=== PATIENT | female | born 2000 | race Caucasian/White ===

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

== ENCOUNTER 2018-08-13 16:34 | Inpatient (IN) | payer BC ==
--- NOTE | 2018-08-13 17:21 | ED ---
Psychiatric Complaint - HPI Summary HPI Summary: This patient is a 18 year old F [facility] [place] [facility] [place] by Vinicius, her RA steel division supervisor, with a chief complaint for increased anxiety and emotional stress. Patient states that she took her own 0.5mg Klonopin x 4 yesterday morning and then 4 more yesterday afternoon. This episode was not brought to medical attention. She is not on 9.41 status. She states that she was not trying to hurt herself but felt the medication was not working effectively so decided to try more. Her friends were concerned about her and brought her to the ED. She typically takes this medication as needed. States she has not used it in months prior to yesterday. The Klonopin is prescribed by an [employer]ISTR[employer] in [place]. Pt also takes Buspirone. Patient has no previous mental health hospitalizations or suicide attempts, but pt did come to the [facility] [place] and had a mental health evaluation and was released. Reports history of cutting , last episode months ago. Denies ETOH or drug use. Pt brought her pill bottles. They are not empty. Dr. Maki Dang (psychologist) [phone] is pt's psychologist in [place] called prior to patient's arrival. Dr. Dang only heard what happened to the pt, did not see her personally today. Dr. Dang favors admission for Phoebe, and agrees to provide collateral. Reports patient is going through emotional collapse and has last seen Dr. Arredondo, psychiatrist at on 08/05/17. Pt also has family issues. She and her mother have emotional issues together, per her psychologist. And also there is stress in the family due to an autistic brother. Pt states her parents are enroute from 4 hrs away. - History Of Current Complaint Chief Complaint: EDPsychosocial Hx Obtained From: Patient, Medical Records, Other: - Dr. Maki Dang Hx Last Menstrual Period: 07/22/18 ?: No Onset/Duration: Gradual Onset, Lasting Days Timing: Constant Severity Initially: Severe Severity Currently: Mild Character: Depressed, Anxious Aggravating Factor(s): Recent Stress, Medication Non-compliance Alleviating Factor(s): Nothing Associated Signs And Symptoms: Positive: Sleep Disturbance Related History: Positive For: Prior Psychiatric Issues Negative For: Drug Abuse Counseling, Admissions Related To Substance Abuse Has Suicidal: Denies: Thoughts, With A Plan Ingestion History: Type/Name Of Drug - Klonopin, Amount Ingested - 0.5 x 4, later 0.5 x 4 on 08/11/18 - Allergies/Home Medications Allergies/Adverse Reactions: Allergies Allergy/AdvReac Type Severity Reaction Status Date / Time No Known Allergies Allergy Verified 08/13/18 17:08 PMH/Surg Hx/FS Hx/Imm Hx Previously Healthy: Yes Endocrine/Hematology History: Denies: Hx Anticoagulant Therapy Cardiovascular History: Denies: Hx Hypertension Psychiatric History: Reports: Hx Anxiety, Hx Depression, Other Psychiatric Issues/Disorders - hx cutting behavior Denies: Hx Eating Disorder, Hx of Violent Episodes Against Others - Surgical History Surgery Procedure, Year, and Place: none Infectious Disease History: No Infectious Disease History: Denies: Traveled Outside the [place] in Last 30 Days - Family History Known Family History: Positive: Other - autism in brother; "my whole family has depression"; denies suicide hx - Social History Occupation: Student Lives: 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 [employer] Alcohol Use: Rare Substance Use Type: Reports: None Smoking Status (MU): Never Smoked Tobacco Review of Systems Constitutional: Negative Negative: Fever Cardiovascular: Negative Respiratory: Negative Gastrointestinal: Negative Positive: no symptoms reported Skin: Negative Neurological: Negative Positive: Anxious, Depressed All Other Systems Reviewed And Are Negative: Yes Physical Exam - Summary Physical Exam Summary: Appearance: well-appearing, no pain distress, well-nourished Skin: Warm, color reflects adequate perfusion, dry Head: Normal Head/Face inspection, atraumatic Eyes: Conjunctiva clear ENT: Normal inspection Neck: Supple, no nodes, no JVD Respiratory: Lungs clear, normal breath sounds, no respiratory distress Cardio: RRR, No murmur, pulses normal, brisk capillary refill Abdomen: Soft, nontender Bowel sounds: Present Musculoskeletal: Strength Intact/ROM intact, no calf tenderness, no edema. Psychological: calm, cooperative, coherent Neuro: Alert, muscle tone normal, no focal deficit Triage Information Reviewed: Yes Vital Signs On Initial Exam: Initial Vitals Temp Pulse Resp BP Pulse Ox 98.1 F 83 16 124/92 100 08/13/18 16:56 08/13/18 16:56 08/13/18 16:56 08/13/18 16:56 08/13/18 16:56 Vital Signs Reviewed: Yes Diagnostics - Vital Signs Vital Signs Temp Pulse Resp BP Pulse Ox 08/13/18 16:56 98.1 F 83 16 124/92 100 - Laboratory Result Diagrams: 08/13/18 18:05 08/13/18 18:05 Lab Statement: Any lab studies that have been ordered have been reviewed, and results considered in the medical decision making process. Course/Dx - Course Course Of Treatment: 18 year old F presenting by private car to [facility] accompanied by Vinicius, her RA steel division supervisor, with a chief complaint increased anxiety and emotional stress. Patient states that she took 0.5mg Klonopin x 4 yesterday morning and then 4 more yesterday afternoon. She states that she was not trying to hurt herself but felt the medication was not working effectively so she tried more. Pt came voluntarily by car. Pt did not seek medical attention for this episode until now. Patient is calm and cooperative with mental health procedures. Pt was placed on q 15 minute checks and observed. Bloodwork and toxicology reports are negative. Pt is clear for mental health evaluation at 1800. Pt remains calm and cooperative. Friends are with her. Patient is moved to [facility]. Patient is signed out to Dr. Rushing awaiting mental health evaluation. Pt's psychologist, Dr. Maki Dang called ahead of pt's arrival and definitely favors admission for patient. - Differential Dx/Clinical Impression Differential Diagnosis/HQI/PQRI: Positive: Anxiety, Depression, Drug Overdose/ Intentional, Drug Overdose/Unintentional, Suicide Attempt, Suicidal Ideation, Suicidal Gesture Provider Diagnosis: Overdose of medication, Anxiety disorder - Physician Notifications Patient Is Medically Stable For: Psych Evaluation - 1800. Discharge - Sign-Out/Discharge Documenting (check all that apply): Sign-Out Patient Signing out patient TO: Payam Rushing - [facility], 08/13/18 1900 Patient Received Moderate/Deep Sedation with Procedure: No - Discharge Plan Referrals: [facility] @ [Outside] - Attestation Statements Document Initiated by Scribe: Yes Documenting Scribe: Kristy Clement Provider For Whom Scribe is Documenting (Include Credential): Xochitl Rojo MD Scribe Attestation: Kristy Trevino, scribed for Xochitl Rojo MD on 08/13/18 at 2210. Scribe Documentation Reviewed: Yes Provider Attestation: The documentation as recorded by the josetteibKristy hunt accurately reflects the service I personally performed and the decisions made by me, Xochitl Rojo MD Status of Anderson Document: Viewed
[2018-08-13 18:00] LABS: Urine Appearance Clear; Urine Bilirubin Negative (Negative); Urine Blood Negative (Negative); Urine Color Yellow; Urine Glucose Negative (Negative); Urine Ketones Negative (Negative); Urine Nitrite Negative (Negative); Urine Protein Negative (Negative); Urine Urobilinogen Negative (Negative)
[2018-08-13 18:14] LABS: ABS Basophils 0.1 10^3/ul (0-0.2); ABS Eosinophils 0.2 10^3/ul (0-0.6); ABS Lymphocytes 1.8 10^3/ul (1.0-4.8); ABS Monocytes 0.4 10^3/ul (0-0.8); ABS Neutrophils 3.3 10^3/ul (1.5-7.7); ABS Nucleated RBC 0 10^3/ul; Hematocrit 39 % (35-47); Hemoglobin 12.9 g/dl (12.0-16.0); Lymphocyte % 31.1 %; Mean Corpuscular HGB Conc 33 g/dl (31-36); Mean Corpuscular Hemoglobin 26 pg (27-31); Mean Corpuscular Volume 79 fL (80-97); Mean Platelet Volume 9.3 fL (7.4-10.4); Nucleated Red Blood Cells % 0; Platelet Count 173 10^3/ul (150-450); Red Blood Count 4.95 10^6/ul (4.00-5.40); Red Cell Distribution Width 15 % (10.5-15); White Blood Count 5.7 10^3/ul (3.5-10.8)
[2018-08-13 18:21] LABS: Barbiturates Urine Screen None Detected (None Detect); Benzodiazepine Urine Screen None Detected (None Detect); Urine Cannabinoids Screen None Detected (None Detect)
[2018-08-13 18:30] LABS: ALT 28 U/L (7-52); AST 24 U/L (13-39); Albumin 4.6 g/dL (3.2-5.2); Albumin/Globulin Ratio 1.5 (1-3); Alkaline Phosphatase 73 U/L (34-104); Anion Gap 6 mmol/L (2-11); BUN/Creatinine Ratio 10.3 (8-20); Blood Urea Nitrogen 8 mg/dL (6-24); CO2 Carbon Dioxide 26 mmol/L (22-32); Calcium 9.7 mg/dL (8.6-10.3); Chloride 104 mmol/L (101-111); EGFR African American 113.9 (>60); EGFR Non-African American 94.2 (>60); Glucose 90 mg/dL (70-100); Potassium 3.7 mmol/L (3.5-5.0); Sodium 136 mmol/L (135-145); Total Protein 7.6 g/dL (6.4-8.9)
[2018-08-13 18:36] LABS: HCG Pregnancy < 0.60 mIU/mL
[2018-08-13 19:19] LABS: Acetaminophen < 15 mcg/mL; Alcohol < 10 mg/dL (<10); Salicylate < 2.50 mg/dL (<30)
--- NOTE | 2018-08-13 19:32 | ED ---
Progress - Progress Note Progress Note: Receiving sign out from Dr. Rojo, pending E. 0224 - Patient is a mental health hold pending being seen by Dr. Ash in the morning. Patient will be signed out to Dr. Mendiola at 0700 08/14/18 shift change as a result. Course/Dx - Diagnoses Provider Diagnoses: Overdose of medication, Anxiety disorder Discharge - Sign-Out/Discharge Documenting (check all that apply): Sign-Out Patient, Receiving Sign-Out Signing out patient TO: Servando Mendiola Receiving patient FROM: Xochitl Rojo Patient Received Moderate/Deep Sedation with Procedure: No - Discharge Plan Referrals: [facility] @ [facility] [Outside] - Attestation Statements Document Initiated by Scribe: Yes Documenting Scribe: Carine Han Provider For Whom Scribe is Documenting (Include Credential): Payam Rushing MD Scribe Attestation: Carine Trevino and Adithya Han, scribed for Payam Rushing MD on 08/14/18 at 0226. Status of Scribe Document: Ready
[2018-08-13 19:34] LABS: TSH (Thyroid Stimulating Horm) 1.42 mcIU/mL (0.34-5.60)
--- NOTE | 2018-08-14 07:03 | ED ---
Progress - Progress Note Progress Note: The patient was signed out by Dr. Rushing to Dr. Mendiola, awaiting mental health evaluation. - Consult/PCP Time Called: 16:40 Course/Dx - Course Course Of Treatment: The patient will be admitted involuntarily. - Diagnoses Provider Diagnoses: Overdose of medication, Anxiety disorder Discharge - Sign-Out/Discharge Documenting (check all that apply): Patient Departure - admission, Receiving Sign-Out Receiving patient FROM: Payam Rushing Patient Received Moderate/Deep Sedation with Procedure: No - Discharge Plan Condition: Stable Disposition: ADMITTED TO [facility] - Billing Disposition and Condition Condition: STABLE Disposition: Admitted to [facility] - Attestation Statements Document Initiated by Scribe: Yes Documenting Scribe: Moshe Ochoa Provider For Whom Anderson is Documenting (Include Credential): Servando Mendiola MD Scribe Attestation: Moshe Trevino, scribed for Srevando Mendiola MD on 08/14/18 at 2007. Scribe Documentation Reviewed: Yes Provider Attestation: The documentation as recorded by the Moshe porras accurately reflects the service I personally performed and the decisions made by , Servando Mendiola MD Status of Scribe Document: Viewed
[2018-08-14] MEDS: BuPROPion XL* 150 MG TAB.XL PO SCH (11:13)
--- NOTE | 2018-08-14 19:52 | HP ---
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 "I had been severely depressed." HISTORY OF PRESENT ILLNESS: Sheila with history of depression and anxiety for a long time came to the emergency room accompanied by her friends and RA because she has been severely depressed and not acting like herself. Sheila reports that she has been sitting really depressed since . She could not sleep, so took few extra pills, which even did not work. She took extra pills day after as well. According to her friends, she was wobbling on her feet and slow to respond. She went to school and to the class and her friends observed her to be out of it. They took her to her room and had her sleep for long time. However, Sheila continued to be sad and depressed and came voluntarily to the emergency room for help. Sheila reports that she goes through these bouts of depression, which lasts somewhere between couple of weeks to couple of months during which time she is extremely sad, cries a lot, unable to focus. Her self esteem and self worth is low. She feels exhausted, cannot focus and get her work done. There were times that she felt suicidal, but never had any plan to execute her thoughts of suicide. She vehemently denies that this time taking extra pills did not have anything to do with suicide. Sheila also reports that there were times following depression, she felt hyperenergetic and was racing. She was talkative, pressured and her friends told her to slow down. She had done some goal directed activities during that time, but those are very short lived. She suffers from depressive episodes more at times than the hypomanic state that she described. However, she denies ever experiencing any hallucinations, delusions or homicidal ideations. In terms of stress, she cannot identify anything other than school work and too much for her to do there. She has good friend [employer], good grades and so on. She goes to gym 5 times every week and spends a great deal of time. Her relationship with her parents as well as friends are very good. PAST PSYCHIATRIC HISTORY: This is her first lifetime psychiatric hospitalization. She came to the emergency room exactly the same time last year for almost similar complaints and was not hospitalized at that time. She has been taking Wellbutrin XR 150 mg daily and also was prescribed Klonopin 0.5 mg to take on an as needed basis when she is extremely anxious, which she took over recommended doses twice this week. SUBSTANCE ABUSE HISTORY: Unremarkable, although she drinks a couple of times a month maybe, she describes it as modest, also smokes marijuana almost the same amount of times. PAST MEDICAL HISTORY: Rather than moderate obesity, she appears to be physically healthy 18-year-old. ALLERGIES: No known drug allergies. FAMILY PSYCHIATRIC HISTORY: Unknown. PERSONAL AND SOCIAL HISTORY: Sheila is an [employer] Student majoring in music. Her grades are 3.8 average. She enjoys doing her class work, has lot of friends, but not involved in any kind of significant relationships. She describes herself as a bisexual. PHYSICAL EXAMINATION Sheila is still in the emergency room. Review of records from the emergency room indicates that she is a healthy 18-year-old female. Labs and vital signs were all unremarkable. MENTAL STATUS EXAMINATION: Moderately obese, average height, female who is wearing a paper hospital scrubs. Her personal hygiene and grooming is good. She is alert and oriented to time, place and person. Her speech is normal. She makes intermittent eye contact. She describes her mood to be sad. Her observed affect is tearful and depressed. Her intelligence appears to be average as evidenced by her vocabulary, school grades and fund of knowledge. Memory function is intact in all spheres. There was no evidence of psychotic, hypomanic or manic symptoms. Her insight and judgment appears to be adequate. SUMMARY: This 18-year-old female with history of anxiety and depression, who took extra Klonopin pills 2 days in a row this week raising a safety concern among her friends and parents. She has an extensive history of severe depressive episode during which time she felt suicidal, although she never acted on it. It is unknown at this time whether she was really trying to hurt herself. However, she herself wants to get some help and volunteered to come in on an inpatient basis. DIAGNOSTIC IMPRESSION: Mental health diagnoses: Major depressive disorder, recurrent, severe, without psychotic features and anxiety disorder, NOS. Physical health diagnosis: Moderate obesity. TREATMENT RECOMMENDATIONS: Sheila will be hospitalized on [facility] for her safety and stabilization of depressive symptoms. Her code status will remain full and while on the unit, supportive milieu, individual and group therapy will be initiated. I will continue her on Wellbutrin while introduce Effexor and will not continue Klonopin. Rest of psychopharmacological management will be deferred to her assigned psychiatrist on the unit. [id number]/[facility] #: [id number] JODY
[2018-08-15] MEDS ORDERED: Al Hydrox/Mg Hydrox/Simet LIQ* 30 ML UDC PO PRN (04:39)
[2018-08-15] MEDS: Acetaminophen TAB* 325 MG PO PRN (08:49)
[2018-08-15] MEDS: Vitamin THERAPEUTIC TAB PO SCH (08:49)
[2018-08-15] MEDS: BuPROPion XL* 150 MG TAB.XL PO SCH (08:49)
[2018-08-15] MEDS ORDERED: Venlafaxine EXT RELEASE CAP* 37.5 MG PO SCH (09:00)
--- NOTE | 2018-08-15 14:44 | PN ---
Subjective - Subjective Date of Service: 08/15/18 Service Type: 30892 Hosp care 35 min high complexity Subjective: Nursing Report: Patient was visible on unit, no chemical restraints or PRNs. Attending group activities. CC: "I took pills to relax Patient was seen and evaluated in the common room. Her parents visited during afternoon visiting hours. The patient reported she feels safe on the unit and is interacting with peers. She reported having an adequate appetite. She reported that sometimes she feels bad about eating too much food and will throw up. She reported attending and participating in day groups. Per nursing no behavioral issues or overnight events reported. Patient reported that she is tolerating medications without side effects. She said taking 4 more pills was not a suicide attempt but rather to get salvation from anxiety. She reports getting a few hours of sleep overnight. She denied auditory and or visual hallucinations. She denied history of seizures and would like to continue wellbutrin despite having anxiety. Objective - Appearance Appearance: Healthy Appearing Dysmorphic Features: No Hygiene: Normal Grooming: Well Kept - Behavior Psychomotor Activities: Normal Exhibits Abnormal Movement: No - Attitude and Relatedness Attitude and Relatedness: Cooperative Eye Contact: Fair - Speech Quality: Unpressured Latencies: Short Quantity: Copious - Mood Patient's Decription of Mood: "Fine" - Affect Observed Affect: Constricted Affect Consistent with: Euthymia - Thought Process Patient's Thought Process: Goal Directed, Circumstantial Thought Content: No Passive Wish, No Suicidal Planning, No Homicidal Ideation, No Paranoid Ideation - Sensorium Experiencing Hallucinations: No, Sensorium is Clear Type of Hallucinations: Visual: No, Auditory: No, Command: No - Level of Consciousness Orientation: Yes Intact, Yes Orientated to Time, Yes Orientated to Place, Yes Orientated to Person - Impulse Control Impulse Control: Tenuous - Insight and Judgement Insight and Judgement: Fair - Group Participation Particating in Group Activities: Yes - Medication Management Medication Management Adherence: Yes Assessment - Assessment Merits Inpatient Hospitalization: For Immediate Safety Clinical Impression: 18 year old female admitted for taking a overdose of klonopin. Plan - Plan Treatment Plan: Name: SIERRA ARCHULETA Birthdate: 2000 [id number] # Voluntary admission. The patient requires inpatient admission at this time to assure safety, receive treatment and work toward stabilization. Q15 min observation #Cough drops #Throat culture #Continue wellbutrin 150mg daily and increase effexor to 75mg daily # Obtain collateral information once release is signed. # Collaboration with Social Work to work toward discharge planning. #Nutrition consult The risks, benefits, and alternative treatment options were discussed as well as of the risks of refusing treatment. After this discussion and an acknowledgement of this understanding was made. A risk benefit assessment of treatment was considered and discussed with the patient. Vital Signs Temp Pulse Resp BP Pulse Ox 98.3 F 76 16 104/66 100 08/15/18 08:21 08/15/18 08:21 08/15/18 09:27 08/15/18 08:21 08/15/18 08:21 Acetaminophen (Tylenol Tab*) 650 mg PO Q4H PRN PRN Reason: PAIN or TEMP > 101 F Last Admin: 08/15/18 08:49 Dose: 650 mg Al Hydrox/Mg Hydrox/Simethicone (Maalox Plus*) 30 ml PO Q4H PRN PRN Reason: INDIGESTION Bupropion HCl (Wellbutrin Xl *) 150 mg PO DAILY [facility] Last Admin: 08/15/18 08:49 Dose: 150 mg Multivitamins (Theragran Tab*) 1 tab PO DAILY [facility] Last Admin: 08/15/18 08:49 Dose: 1 tab Venlafaxine HCl (Effexor Xr Cap*) 75 mg PO DAILY [facility] Sodium 136 mmol/L (135-145) 08/13/18 18:05 Potassium 3.7 mmol/L (3.5-5.0) 08/13/18 18:05 BUN 8 mg/dL (6-24) 08/13/18 18:05 Creatinine 0.78 mg/dL (0.51-0.95) 08/13/18 18:05 Calcium 9.7 mg/dL (8.6-10.3) 08/13/18 18:05 AST 24 U/L (13-39) 08/13/18 18:05 ALT 28 U/L (7-52) 08/13/18 18:05 Continued Medication Management: Start Medication Medications: Current Medications Acetaminophen (Tylenol Tab*) 650 mg PO Q4H PRN PRN Reason: PAIN or TEMP > 101 F Last Admin: 08/15/18 08:49 Dose: 650 mg Al Hydrox/Mg Hydrox/Simethicone (Maalox Plus*) 30 ml PO Q4H PRN PRN Reason: INDIGESTION Bupropion HCl (Wellbutrin Xl *) 150 mg PO DAILY [facility] Last Admin: 08/15/18 08:49 Dose: 150 mg Multivitamins (Theragran Tab*) 1 tab PO DAILY [facility] Last Admin: 08/15/18 08:49 Dose: 1 tab Venlafaxine HCl (Effexor Xr Cap*) 75 mg PO DAILY [facility] - Discharge Plan Discharge Plan: Inpatient Hospitalization
[2018-08-15] MEDS: Benzocaine/Menthol LOZ* 1 LOZENGE PO PRN (17:14)
[2018-08-16] MEDS: Benzocaine/Menthol LOZ* 1 LOZENGE PO PRN ×4 (00:46→20:38)
[2018-08-16] MEDS ORDERED: Nicotine PATCH 14 MG/24 HR* PATCH TRANSDERM SCH (08:00)
[2018-08-16] MEDS: Vitamin THERAPEUTIC TAB PO SCH (09:27)
[2018-08-16] MEDS: Venlafaxine EXT RELEASE CAP* 75 MG PO SCH (09:27)
[2018-08-16] MEDS: BuPROPion XL* 150 MG TAB.XL PO SCH (09:27)
[2018-08-16] MEDS: Acetaminophen TAB* 325 MG PO PRN (09:27)
--- NOTE | 2018-08-16 10:29 | PN ---
Subjective - Subjective Date of Service: 08/16/18 Service Type: 31998 Hosp care 35 min high complexity Subjective: Nursing Report: Patient was visible on unit, no chemical restraints or PRNs. Attending group activities. CC: " I am doing better Patient was seen and evaluated in the common room. Her mother called this morning. The patient reported she feels safe on the unit and is interacting with peers. She reported having an adequate appetite. She reported attending and participating in day groups. Per nursing no behavioral issues or overnight events reported. Patient reported that she is tolerating medications without side effects. She reports getting her usual amount of sleep. She denied auditory and or visual hallucinations. She denied having an abundance of energy or manic features. Mother and father was present for family meeting and outpatient follow up, medication concerns, and prior history was discussed. Parents have no issues with being discharge for tomorrow. Objective - Appearance Appearance: Healthy Appearing Dysmorphic Features: No Hygiene: Normal Grooming: Well Kept - Behavior Psychomotor Activities: Normal Exhibits Abnormal Movement: No - Attitude and Relatedness Attitude and Relatedness: Cooperative Eye Contact: Fair - Speech Quality: Unpressured Latencies: Short Quantity: Appropriate - Mood Patient's Decription of Mood: "Okay" - Affect Observed Affect: Constricted Affect Consistent with: Euthymia - Thought Process Patient's Thought Process: Goal Directed Thought Content: No Passive Wish, No Suicidal Planning, No Homicidal Ideation, No Paranoid Ideation - Sensorium Experiencing Hallucinations: No, Sensorium is Clear Type of Hallucinations: Visual: No, Auditory: No, Command: No - Level of Consciousness Level of Consciousness: Alert Orientation: Yes Intact, Yes Orientated to Time, Yes Orientated to Place, Yes Orientated to Person - Impulse Control Impulse Control: Tenuous - Insight and Judgement Insight and Judgement: Fair - Group Participation Particating in Group Activities: Yes - Medication Management Medication Management Adherence: Yes Assessment - Assessment Merits Inpatient Hospitalization: For Immediate Safety Clinical Impression: 18 year old female with a history of depression and anxiety is admitted to the [facility]SU for taking a handful of klonopin. While on the unit she has shown good response to treatment. B[facility]: Problem List - Patient Problems (1) Major depressive disorder Current Visit: Yes Status: Acute Code(s): F32.9 - MAJOR DEPRESSIVE DISORDER , SINGLE EPISODE, UNSPECIFIED SNOMED Code(s): 499884028 Plan - Plan Treatment Plan: Name: SIERRA ARCHULETA Birthdate: 2000 [id number] # Voluntary admission. The patient requires inpatient admission at this time to assure safety, receive treatment and work toward stabilization. #Q30 min and Staff pass #Cough drops #Throat culture #Continue Wellbutrin 150mg daily #Continue Effexor to 75mg daily # Obtain collateral information once release is signed. # Collaboration with Social Work to work toward discharge planning. #Nutrition consult #Signed release to speak to her mother Gerda [phone] #Tentative Discharge for Wednesday #Medicine consulted for sore throat and recommends rapid strep test. The risks, benefits, and alternative treatment options were discussed as well as of the risks of refusing treatment. After this discussion and an acknowledgement of this understanding was made. A risk benefit assessment of treatment was considered and discussed with the patient. Continued Medication Management: Start Medication Medications: Current Medications Acetaminophen (Tylenol Tab*) 650 mg PO Q4H PRN PRN Reason: PAIN or TEMP > 101 F Last Admin: 08/16/18 09:27 Dose: 650 mg Al Hydrox/Mg Hydrox/Simethicone (Maalox Plus*) 30 ml PO Q4H PRN PRN Reason: INDIGESTION Bupropion HCl (Wellbutrin Xl *) 150 mg PO DAILY [facility] Last Admin: 08/16/18 09:27 Dose: 150 mg Multivitamins (Theragran Tab*) 1 tab PO DAILY [facility] Last Admin: 08/16/18 09:27 Dose: 1 tab Nicotine (Nicotine Patch 14 Mg/24 Hr*) 1 patch TRANSDERM DAILY@0800 [facility] Last Admin: 08/16/18 09:40 Dose: Not Given Pharmacy Profile Note (Nicotine Patch Removal Note*) 1 note PATCH OFF 1999 [facility] Throat Lozenges (Chloraseptic Liza*) 1 liza PO Q6H PRN PRN Reason: SORE THROAT Last Admin: 08/16/18 07:00 Dose: 1 liza Venlafaxine HCl (Effexor Xr Cap*) 75 mg PO DAILY [facility] Last Admin: 08/16/18 09:27 Dose: 75 mg - Discharge Plan Discharge Plan: Inpatient Hospitalization
[2018-08-16] MEDS ORDERED: Nicotine Patch Removal NOTE PATCH OFF SCH (20:00)
[2018-08-17] MEDS: Benzocaine/Menthol LOZ* 1 LOZENGE PO PRN (07:32)
[2018-08-17 07:50] LABS: HDL Cholesterol 69.5 mg/dL
[2018-08-17] MEDS ORDERED: Ondansetron TAB* 4 MG PO ONE (08:36)
[2018-08-17] MEDS ORDERED: BuPROPion XL* 150 MG TAB.XL PO SCH (09:00)
[2018-08-17] MEDS ORDERED: buPROPion TAB* 75 MG PO SCH (09:00)
[2018-08-17] MEDS: Vitamin THERAPEUTIC TAB PO SCH (09:26)
[2018-08-17] MEDS: Venlafaxine EXT RELEASE CAP* 75 MG PO SCH (09:26)
[2018-08-17 09:54] LABS: Influenza A Molecular NEGATIVE (Negative); Influenza B Molecular NEGATIVE (Negative)
[2018-08-17 11:12] VITALS: BP 121/69
--- NOTE | 2018-08-17 11:41 | DS ---
Subjective - Subjective Service Types: [id number] [facility] Day Mgmt complex over 30 min Discharge Date: 08/17/18 Subjective: Nursing Report: Patient was visible on unit, no chemical restraints or PRNs. Attending group activities. CC: " I am ready to go home Patient was seen and evaluated today. She reported that she had feeling nausea this morning and threw up because of it. Medicine team came by to evaluate her and cleared her for discharge today. The patient reported she feels safe on the unit and is interacting with peers. She reported having an adequate appetite. She has been attending and participating in day groups. Per nursing no behavioral issues or overnight events reported. Patient reported that she is tolerating medications without side effects. She reports getting her usual amount of sleep. She denied auditory and or visual hallucinations. She is looking forward to going back to school and going on vacation for spring. She denied suicidal ideation intent or plan. 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 "I had been severely depressed." HISTORY OF PRESENT ILLNESS: Sheila with history of depression and anxiety for a long time came to the emergency room accompanied by her friends and RA because she has been severely depressed and not acting like herself. Sheila reports that she has been sitting really depressed since . She could not sleep, so took few extra pills, which even did not work. She took extra pills day after as well. According to her friends, she was wobbling on her feet and slow to respond. She went to school and to the class and her friends observed her to be out of it. They took her to her room and had her sleep for long time. However , Sheila continued to be sad and depressed and came voluntarily to the emergency room for help. Sheila reports that she goes through these bouts of depression, which lasts somewhere between couple of weeks to couple of months during which time she is extremely sad, cries a lot, unable to focus. Her self esteem and self worth is low. She feels exhausted, cannot focus and get her work done. There were times that she felt suicidal, but never had any plan to execute her thoughts of suicide. She vehemently denies that this time taking extra pills did not have anything to do with suicide. Sheila also reports that there were times following depression, she felt hyperenergetic and was racing. She was talkative, pressured and her friends told her to slow down. She had done some goal directed activities during that time, but those are very short lived. She suffers from depressive episodes more at times than the hypomanic state that she described. However, she denies ever experiencing any hallucinations, delusions or homicidal ideations. In terms of stress, she cannot identify anything other than school work and too much for her to do there. She has good friend manzanita, good grades and so on. She goes to gym 5 times every week and spends a great deal of time. Her relationship with her parents as well as friends are very good. PAST PSYCHIATRIC HISTORY: This is her first lifetime psychiatric hospitalization. She came to the emergency room exactly the same time last year for almost similar complaints and was not hospitalized at that time. She has been taking Wellbutrin XR 150 mg daily and also was prescribed Klonopin 0.5 mg to take on an as needed basis when she is extremely anxious, which she took over recommended doses twice this week. SUBSTANCE ABUSE HISTORY: Unremarkable, although she drinks a couple of times a month maybe, she describes it as modest, also smokes marijuana almost the same amount of times. PAST MEDICAL HISTORY: Rather than moderate obesity, she appears to be physically healthy 18-year-old. ALLERGIES: No known drug allergies. FAMILY PSYCHIATRIC HISTORY: Unknown. 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 Her grades are 3.8 average. She enjoys doing her class work, has lot of friends, but not involved in any kind of significant relationships. She describes herself as a bisexual. PHYSICAL EXAMINATION Sheila is still in the emergency room. Review of records from the emergency room indicates that she is a healthy 18-year-old female. Labs and vital signs were all unremarkable. MENTAL STATUS EXAMINATION: Moderately obese, average height, female who is wearing a paper hospital scrubs. Her personal hygiene and grooming is good. She is alert and oriented to time, place and person. Her speech is normal. She makes intermittent eye contact. She describes her mood to be sad. Her observed affect is tearful and depressed. Her intelligence appears to be average as evidenced by her vocabulary, school grades and fund of knowledge. Memory function is intact in all spheres. There was no evidence of psychotic, hypomanic or manic symptoms. Her insight and judgment appears to be adequate. SUMMARY: This 18-year-old female with history of anxiety and depression, who took extra Klonopin pills 2 days in a row this week raising a safety concern among her friends and parents. She has an extensive history of severe depressive episode during which time she felt suicidal, although she never acted on it. It is unknown at this time whether she was really trying to hurt herself. However, she herself wants to get some help and volunteered to come in on an inpatient basis. Justification for Admission: Immediate safety Diagnosis on Admission: Major depressive disorder, recurrent, severe, without psychotic features and anxiety disorder, NOS. Diagnosis on Discharge: Major Depressive Disorder, currently in remission. Generalized Anxiety disorder. PTSD. Condition at the time of discharge: At the time of discharge patient showed improvement of sleep and appetite. The patient was not a danger to self or others. The patient denied suicidal ideations , intent or plans. The patient denied homicidal targets, ideations, intents or plans. This patient participated in psychosocial rehabilitation and gained some insight into problems. The patient gained insight into mental illness, triggers, and treatment. The patient took medication as prescribed. The patient denied side effects of medication and objective signs of side effects were not evident. Therapy Resources were offered to the patient. Patient was given a supply of prescriptions at the time of discharge. The patient plans to attend follow up care with the follow up arrangements that were discussed and put in place. Patient was asked to keep appointments as scheduled, take medication as prescribed, have routine follow up care with their primary care physician and refrain from any use of alcohol or drugs. Objective - Appearance Appearance: Healthy Appearing Dysmorphic Features: No Hygiene: Normal Grooming: Well Kept - Behavior Psychomotor Activities: Normal Exhibits Abnormal Movement: No - Attitude and Relatedness Attitude and Relatedness: Cooperative Eye Contact: Fair - Speech Quality: Unpressured Latencies: Normal Quantity: Appropriate - Mood Patient's Decription of Mood: "Good" - Affect Observed Affect: Non-labile Affect Consistent with: Euthymia - Thought Process Patient's Thought Process: Goal Directed Thought Content: No Passive Wish, No Suicidal Planning, No Homicidal Ideation, No Paranoid Ideation - Sensorium Experiencing Hallucinations: No, Sensorium is Clear Type of Hallucinations: Visual: No, Auditory: No, Command: No - Level of Consciousness Level of Consciousness: Alert Orientation: Yes Intact, Yes Orientated to Time, Yes Orientated to Place, Yes Orientated to Person - Impulse Control Impulse Control: Intact - Insight and Judgement Insight and Judgement: Good - Group Participation Particating in Group Activities: Yes - Medication Management Medication Management Adherence: Yes Treatment Course & Assessment Clinical Course & Impression: Hospital course part A: 18 year old female with a history of depression and anxiety is admitted to the BSU for taking a handful of klonopin. While on the unit she has shown good response to treatment. Hospital course part B: Labs ordered included CBC, CMP. HBA1c, lipid profile, B -HCG, TSH, UA, Toxicology screen, MMPI, Influenza A and B antigen , Throat culture. Culture and influenza tests were negative. Vital signs were monitored during course of admission. Labs were within normal limits and medical team did not have any further recommendations and provided medical clearance before discharge. The patient was admitted to the adult behavioral unit and placed on 15 minute check for safety. At a later time the patient was on Q30 minute observation and staff pass privileges. With those limits being extended , there were no occurrence of behavioral incidents. The patient did well on the unit and went to groups. Interacted with peers had adequate sleep and regular appetite. Tolerated medication changes without side effects. Group therapy and services were offered. The risks, benefits, and alternative treatment options were discussed as well as of the risks of refusing treatment. Treatment associated risks discussed . After this discussion and an acknowledgement of this understanding , made the decision for the current type of treatment. Follow up care appointments were put in place for follow up care within 7 days of discharge. She was advised of risks treatment have on and BHCG was negative. She did not display symptoms of jose on the unit and wellbutrin was titrated down from 150mg daily to 75mg daily for 7 days and will be discontinued and she will remain on effexor 75mg upon discharge. The Patients was discharged to her parents who came to the unit to pick her up. The patient was advised of the 24 hour / 7 days a week availability of the emergency room and to call 911 in the event of becoming suicidal and/ or homicidal and for all other emergencies. The patient was informed of the contact information for [facility], Suicide Prevention and Crisis Services, National Suicide Prevention Lifeline, [facility], Alcoholics Anonymous, and [facility]. Medications started included Effexor 37.5mg po daily and was increased to 75mg daily. A family meeting was held before discharge and there were no concerns for discharge for today. Consults during admission included a medicine consult to address headache neck pain sore throat and nasal congestion. A dietary consult was placed to assist with dietary needs and recommendations. She was given one time of zofran 4mg for nausea. She completed a MMPI. Improvements in patient from the time of admission include: Improved affect, sleep and decrease in anxiety. No longer suicidal and no longer having feelings of hopelessness. Risk factors: Patients age, single, white, female with history of Depression. Protective factors: She has no substance abuse, future orientated , adherence to treatment, no history of service, currently no Hopelessness and no history of suicide attempt,not in a occupation of social isolation, doesnt have multiple physical illnesses, no family history of suicide, No access to firearms. No command hallucinations, no substance abuse, no alcohol abuse. Merits Inpatient Hospitalization: No Clear for Discharge: Adequate Clinical Respons Discharge Planning - Discharge Planning Discharge Plan: Outpatient Follow Up Outpatient Program: Private Clinician(s) Recommendations for Continuing Care: Medication Management Medications: Current Medications Acetaminophen (Tylenol Tab*) 650 mg PO Q4H PRN PRN Reason: PAIN or TEMP > 101 F Last Admin: 08/16/18 09:27 Dose: 650 mg Al Hydrox/Mg Hydrox/Simethicone (Maalox Plus*) 30 ml PO Q4H PRN PRN Reason: INDIGESTION Bupropion HCl (Wellbutrin Tab*) 75 mg PO DAILY [facility] Last Admin: 08/17/18 09:26 Dose: 75 mg Multivitamins (Theragran Tab*) 1 tab PO DAILY [facility] Last Admin: 08/17/18 09:26 Dose: 1 tab Throat Lozenges (Chloraseptic Liza*) 1 liza PO Q6H PRN PRN Reason: SORE THROAT Last Admin: 08/17/18 07:32 Dose: 1 liza Venlafaxine HCl (Effexor Xr Cap*) 75 mg PO DAILY [facility] Last Admin: 08/17/18 09:26 Dose: 75 mg Discharge Planning: Prescriptions provided for discharge [x] Yes [] No Follow up care details as per social work arrangements. Patient response to discharge plan: [] eager for discharge [x] agreeable with discharge plan [] ambivalent about discharge [] disagrees with discharge today
[2018-08-17 11:48] LABS: ABS Basophils 0 10^3/ul (0-0.2); ABS Eosinophils 0.2 10^3/ul (0-0.6); ABS Lymphocytes 0.8 10^3/ul (1.0-4.8); ABS Monocytes 0.5 10^3/ul (0-0.8); ABS Neutrophils 3.5 10^3/ul (1.5-7.7); ABS Nucleated RBC 0 10^3/ul; Eosinophil % 4.1 %; Hematocrit 40 % (35-47); Hemoglobin 13.2 g/dl (12.0-16.0); Lymphocyte % 16.4 %; Mean Corpuscular HGB Conc 33 g/dl (31-36); Mean Corpuscular Hemoglobin 26 pg (27-31); Mean Corpuscular Volume 79 fL (80-97); Mean Platelet Volume 9.1 fL (7.4-10.4); Nucleated Red Blood Cells % 0; Platelet Count 174 10^3/ul (150-450); Red Blood Count 5.08 10^6/ul (4.00-5.40); Red Cell Distribution Width 15 % (10.5-15); White Blood Count 5.2 10^3/ul (3.5-10.8)
[2018-08-17 12:03] LABS: Albumin 4.6 g/dL (3.2-5.2); Albumin/Globulin Ratio 1.4 (1-3); BUN/Creatinine Ratio 8.8 (8-20); C Reactive Protein 3.06 mg/L (<8.01); Calcium 9.8 mg/dL (8.6-10.3); EGFR African American 110.7 (>60); EGFR Non-African American 91.4 (>60); Globulin 3.4 g/dL (2-4); Potassium 3.8 mmol/L (3.5-5.0); Total Bilirubin 0.6 mg/dL (0.2-1.0)
--- NOTE | 2018-08-17 13:32 | CONS ---
CONSULTATION REPORT: DATE OF CONSULT: 08/17/18 REQUESTING PHYSICIAN IN CONSULT: Suleman Lobo MD HISTORY OF PRESENT ILLNESS/HOSPITAL COURSE: I refer you to Dr. Ash's history and physical dictated on 08/14/18 for complete details; but, in short, Ms. Torres is a 18-year-old female who was admitted to behavioral services unit for depression. She is being managed by providers in [facility] for her depression, but this morning she complained of abdominal pain, nausea, and vomiting x1. The patient states that she has had a "head cold" since Wednesday. She has been prescribed throat lozenges due to sore throat. She complains of bilateral ear pain, head pain, nasal congestion, and postnasal drainage. As mentioned, she vomited x1 this morning. She believes that this was due to postnasal drainage. She complained of nausea over the last couple of days, but reports that it has gone since she has vomited. She states that she does have a cough, but believes that it is due to drainage running down to her throat from her nose. She states that she has difficulty sleeping due to the congestion or pain in the nasal passages when she breathes through her nose. She complains of sore throat. She states that she had chills last night and this morning, but believes that it was due to fatigue as she has been unable to sleep well over the last couple of nights. She denies fever. She denies abdominal pain, changes in bowel or bladder habits, and sick contacts. Nursing staff noted that there has been a recent exposure in [facility] to influenza as well as a gastroenteritis, but this has not occurred while the patient was in the unit. It is noted that the patient was given 1 dose of Zofran 4 mg after having reported nausea this morning. PAST MEDICAL HISTORY: 1. Depression. 2. Anxiety. PAST SURGICAL HISTORY: None. HOME MEDICATIONS: 1. Bupropion 75 mg p.o. daily. 2. Venlafaxine XR 75 mg p.o. daily. ALLERGIES: No known drug allergies. FAMILY HISTORY: The patient states that on her dad's side, a lot of the women were diagnosed with hypothyroid or hypoparathyroid. Paternal grandmother had lupus. The patient states that her mom's side of the family is healthy. SOCIAL HISTORY: Ms. 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 Her family lives approximately 4 hours away right outside of [place]. She states that she does not smoke. She does say that she had smoked in the past for approximately 1 month, having had approximately 12 cigarettes. The patient states that she drinks on the weekend and has about 3 drinks. REVIEW OF SYSTEMS: A 10-point review of systems was performed and all the pertinent positives and negative findings are in the HPI. All other systems are negative. PHYSICAL EXAM: General: Ms. Torres is a well-developed, well-nourished young white woman who is sitting up in bed. She is in no acute distress. She appears her stated age. HEENT: Visual gallardo are grossly intact. Her pupils are equally round and reactive to light and accommodation. Extraocular movements are intact. Sclerae are without icterus. Hearing is grossly intact. The external auditory canals are patent and free of cerumen. The left tympanic membrane is slightly erythematous. Both tympanic membranes are intact with visible landmarks. The nares are erythematous with clear drainage. The sinuses are nontender to palpation. Oral mucous membranes are moist and without lesions. There is postnasal drainage at the posterior pharynx. Neck with full range of motion. Thyroid not palpable. There is no cervical lymphadenopathy. Trachea is at midline. Cardiovascular: Regular rate and rhythm. S1, S2 present. No murmurs, rubs, or gallops. Respiratory: Symmetrical chest expansion without use of accessory muscles. Lungs are clear to auscultation. No rhonchi, wheezes, or rubs. Abdomen: Bowel sounds in all quadrants. The abdomen is soft. There is slight tenderness to deep palpation. There is no hepatosplenomegaly. Extremities: Skin is warm and smooth bilaterally. There is no edema. There is no clubbing or cyanosis. Radial and pedal pulses are 2+ bilaterally. Neuro: The patient is awake. She is alert and oriented x3. She is able to move all of her extremities. She has a steady gait with no impairment. DIAGNOSTIC STUDIES/LAB DATA: WBC 5.2, RBC 5.08, HGB 13.2, HCT 40, platelet count 174. Sodium 136, potassium 3.8, chloride 101, carbon dioxide 27, BUN 7, creatinine 0.80, calcium 9.8. Total bilirubin 0.60, AST 27, ALT 33, alk phos 82. CRP is 3.06. ASSESSMENT AND PLAN: Ms. Torres is a 18-year-old female with a past medical history of anxiety and depression who is an inpatient on the behavioral health services unit. The patient will likely be discharged today. Hospitalists were asked to consult on the patient as she had been experiencing head cold x3 days as well as nausea and 1 bout of vomiting. 1. Nasal congestion. It is likely that the patient has a viral illness. The patient has bilateral ear pain, nasal congestion, postnasal drainage, occasional cough, nausea, and vomiting x1. The patient denies any other abdominal symptoms, although she states that her stomach does hurt when palpated. The patient's laboratory studies were within normal limits including white blood cell count, liver function tests, and C-reactive protein. The patient was advised on symptomatic therapies such as Afrin nasal spray which must be discontinued after 3 days of use, saline nasal spray p.r.n., and humidified air. It is suggested that the patient use some form of pain relief of her preference such as Tylenol, ibuprofen, or naproxen. The patient was advised to wash her hands often. As she will likely be discharged today, she was advised that if symptoms persist or worsen that she seek further evaluation by her primary care physician. 2. Depression and anxiety. Managed by Dr. Lobo. 3. Full code. TIME SPENT: Approximately 45 minutes were spent on this consultation, greater than half that time was spent with the patient obtaining history and performing physical exam and reviewing the plan of care. The case has been discussed with my attending, Dr. Jimenez, who is in agreement with the plan of care. VERÓNICA GAXIOLA [id number]/[facility] #: [id number] MTDAlayna
--- NOTE | 2018-08-18 14:53 | CONS ---
PSYCHOLOGICAL REPORT: DATE OF CONSULT: 08/18/18. PROCEDURE CODE: [id number]. REASON FOR REFERRAL: Sheila was referred for psychological testing in order to help with diagnostic impression with concerns regarding severity of depression as well as possible lethality as well as ch aracterological vulnerabilities which may be a contributing factor. TESTS ADMINISTERED: Sheila completed the [place] Multiphasic Personality Inventory-2 (MMPI-2), and was seen in the context of cognitive behavioral group psychotherapy as well as individual consultati on. RELEVANT HISTORY: Sheila was brought in by concerned friends of hers where she is a student at [employer]. Sheila describes how she had struggled with getting sleep after a period of depression an d was acting uncharacteristically and her friends brought her in out of concern for her well being. It remains unclear if she had made intentional overdose attempt by taking extra Klonopin pills on 2 s uccessive nights or not. Regardless, she was brought in for evaluation and subsequently admitted to the [facility]. Sheila describes recurrent periods of what sounds to be a major depressive episodes where she struggles with both depression and anxiety describing poor self esteem at times a nd low energy and also describes having passive suicidal ideation at times. She denies having made a ny prior suicide attempts. Sheila describes good academic and social adjustment to life at [employer] where she reports havi ng good family and social supports with peers. She described being grateful for attention of peers a s well as her family during her inpatient stay and describes relief at their supportive attitude rega rding her difficulties. Sheila impressed as being future oriented rather quickly regaining her sense of perspective after admission, describing her interest in bringing musical opportunities to [facility] [employer]. Sheila was active in unit programming throughout her stay, engaging in clinical discussion in thoughtful and nourished fashion and so interacting with peers and staff in empathic and relevant fa shion. She reports good subjective description of cessation of intrusive depressive symptomatology a nd had consistently expressed an interest to obtain discharge to return to her studies. There were s ome concerns that Sheila described what could be short-lived hypomanic experiences after going throug h depressive bouts and history, but she did not evidence any difficulties characteristic of bipolar d isorder while here. TEST RESULTS: Sheila provides a valid protocol on this administration of the MMPI- 2 as evidenced by not elevating any of the ability features. Of note, her depression scale was subclinical, which is felt to be reassuring both in terms of depressive symptomatology as well as in lethality. Her denial of engaging in prior suicidal behavioral is also reassuring in regards to dangerousness. Sheila spicer psychopathic deviate to a minor degree (T=68), as well as more significantly the paranoia scale (T=75). Scores here are felt to be reflective of some anger, but is not likely to be expressed in a ppropriate fashion by Sheila. Instead, her anger is more likely to be expressed internally and likely to be consistent with depressive symptoms. She has significant, but subclinical score on hypomania scale as well (T=58), which is often common with all students in her age range, who may express some disdain for social conformity and convention coupled with periods of increased activity and energy wh ich often coincides with cyclical academic calender pressures. IMPRESSIONS AND RECOMMENDATIONS: Sheila's test scores are felt to be reassuring in response to quest ions regarding severity of depression and possible lethality and that her depression scale is not tristan vated, nor does she evidence a very low score in hypomania scale. To the contrary, her rather quick response to inpatient treatment and subsequent discharge is felt to be reassuring in terms of likelih ood of dangerousness and she expressed a good insight and judgment in regards to understanding clinic al symptoms and effect of amelioration of symptoms. Concerns regarding characterological vulnerabili ties are not apparent either in the testing context. Sheila impresses as a very good candidate to jesus alberto th engage in and benefit from ongoing cognitive behavioral psychotherapies and also impresses this li berenice to be compliant with recommended medications. She expresses gratitude for staff efforts to help her and also expresses positive affect in the context of family support and peer connection. Diagno stic impression supports major depressive episode, severe without psychosis, recurrent with further c linical consideration for generalized anxiety disorder and posttraumatic stress disorder. [id number]/[facility] #: [id number]
== END 2018-08-17 13:40 | disposition home or self-care (01) | DRG 751 ==
LOC: ED 16:34 → BSU 08-14 18:56
PROVIDERS: ADMIT Psychiatry & Neurology Psychiatry; ATTEND Psychiatry & Neurology Psychiatry
DX: F33.2 Major depressive disorder, recurrent severe without psychotic features (principal); R45.851 Suicidal ideations; F41.9 Anxiety disorder, unspecified; F12.90 Cannabis use, unspecified, uncomplicated; E66.9 Obesity, unspecified; R09.81 Nasal congestion; Z79.899 Other long term (current) drug therapy; Z83.49 Family history of other endocrine, nutritional and metabolic diseases; Z84.89 Family history of other specified conditions
CPT/HCPCS: 36415; 80053; 80061; 80307; 80320; 80329; 81003; 83036; 84443; 84702; 85025; 86140; 87070; 99222; 99233; 99238; 99284; A9270-GY; G0480